=== PATIENT | male | born 1960 | race Caucasian/White ===

== ENCOUNTER 2024-09-23 15:41 | Emergency (ER) | payer MEDICAID, SELFPAY ==
[2024-09-23 15:42] VITALS: BMI 22.4
[2024-09-23 15:51] VITALS: BP 184/87; PULSE 82; RESP 18; TEMP 37.1; O2SAT 97; BMI 24.5
--- NOTE | 2024-09-23 15:55 | XR_ITS ---
Exam: Chest PA, lateral 2 views Technique: Chest upright PA lateral 2 views Date and time of exam: 09/23/2024, 4:07 PM INDICATION: Chest pain COMPARISON: 11/21/2016 Findings: Normal heart size. No mediastinal adenopathy. No acute fracture No pulmonary edema or pneumonia. Impression: No active disease.
--- NOTE | 2024-09-23 15:55 | EKG_ITS ---
[facility] Test Date: 2024-09-23 Pat Name: CLEOPATRA GELLER Department: Room: - Gender: Male Practice Architect: : [id number] Requested By: Isauro Herrmann ([place]) Order Number: [id number] Reading MD: Isauro Herrmann ([employer]TER) Measurements Intervals [place] Rate: 81 P: 45 [place]: 124 QRS: 27 QRSD: 118 T: 56 QT: 372 QTc: 433 Interpretive Statements SINUS RHYTHM MODERATE INTRAVENTRICULAR CONDUCTION DELAY [110+ ms QRS DURATION] No previous ECG available for comparison /[id number].pdf
--- NOTE | 2024-09-23 15:55 | PD.EDRME ---
Rapid Medical Screening Exam RME Arrival date/time: 09/23/24 15:41 64-year-old male presents to the emergency department complaints of chest pressure which began today Chief Complaint: Chest Pain Vital signs: Vital Signs Temperature 98.8 F 09/23/24 15:51 Pulse Rate 82 09/23/24 15:51 Respiratory Rate 18 09/23/24 15:51 Blood Pressure 184/87 H 09/23/24 15:51 Pulse Oximetry (%) 97 09/23/24 15:51 Oxygen Delivery Method Room Air 09/23/24 15:51
[2024-09-23 16:16] LABS: Basophils % (Auto) 0 % (0-2.5); Eosinophils # (Auto) 0.1 Thou/mm3 (0.0-0.5); Eosinophils % (Auto) 1 % (0-10); Hematocrit 44.6 % (41.0-53.0); Hemoglobin 15.8 g/dL (13.5-16.0); Immature Granulocytes % (Auto) 0 % (0-0); Immature Granulocytes Auto 0.02 Thou/mm3 (0.00-0.00); Lymphocytes # (Auto) 3.2 Thou/mm3 (1.0-4.8); Lymphocytes % (Auto) 34 % (10-50); Mean Corpuscular HGB Conc 35.4 g/dl (31.0-37.0); Mean Corpuscular Volume 85 fL (80-100); Monocytes % (Auto) 11 % (0-12); Neutrophils # (Auto) 5.1 Thou/mm3 (1.8-7.7); Neutrophils % (Auto) 54 % (37-80); Nucleated Red Blood Cell % 0 /100 WBC (0); Platelet Count 220 Thou/mm3 (140-440); RDW Standard Deviation 38.3 fL (35.1-43.9); Red Blood Count 5.27 Miln/mm3 (4.50-5.90); White Blood Count 9.4 Thou/mm3 (3.8-10.6)
--- NOTE | 2024-09-23 16:21 | EDNOTE_ITS ---
ED Chest Pain RME/HPI General Chief Complaint: Chest Pain Stated Complaint: Chest pain x 1 day, nausea Time Seen by Provider: 09/23/24 16:20 Arrival date/time: 09/23/24 15:41 RME / HPI RME / HPI narrative: 09/23/24 15:41 64-year-old male presents to the emergency department complaints of chest pressure which began today This section includes all my notes and documentations, including HPI, PE, and ED course. Jonathan Azevedo MD HPI: 64-year-old male here with symptoms of intense fear, pounding and racing heart, sweating, chills, shaking, trouble breathing, chest pain, stomach pain, nausea, numbness and tingling in the hands and feet and face, confusion, hot flashes, and feeling faint. Reports episodes, varying length, for the past several days. No other complaints ROS: All negative except as documented in HPI. Physical Exam: General: Alert and oriented. Appears anxious. Eyes: Conjunctivae and lids clear. EOMI. PERRL. ENT: No nasal congestion. Pharynx normal. Tympanic membrane normal bilaterally. Neck: Supple. No carotid bruit. No JVD. Heart: RRR. Lungs: No respiratory distress. Good air movement. No rhonchi, wheezing, rales. Chest: No tenderness. Abdomen: Soft and nontender. Back: No CVA tenderness. Legs: No clubbing, cyanosis, edema. Skin: Warm and dry. Neuro: Alert and oriented X 3. Cranial Nerves II-XII grossly intact. No peripheral motor deficits. I reviewed all diagnostic test results. My interpretation of the EKG is sinus rhythm with no acute ST?T changes. My interpretation of the chest x-ray is no acute findings. Blood tests unremarkable. At this point, diagnoses include anxiety. Remained stable. Recommended more outpatient cardiac workup. Based on my best medical judgment, made decision no further evaluation or treatment indicated at this time. Patient understands and agrees to the discharge instructions customized and printed, see below. Discharge instructions from Dr. Azevedo: 1. After extensive evaluation, there is no life-threatening condition.? Such as heart attack or pneumothorax (collapsed lung). 2. Your chest pain can be due to high BP and may be due to underlying stress or anxiety or nerves.? This is fairly common. 3. Take metoprolol ER 100 mg every night, you will live longer with lower BP and slower heart rate. Xanax as needed for anxiety.? Whether this helps or not will be valuable information to your private doctors. 4. See a private doctor on 09/24/2024 for recheck and further care. To make sure there is no serious underlying heart condition, ask to help you get more tests for your heart that cannot be done here in the ER.? Such as Holter Monitor (cardiac monitoring at home from a day to even a month), heart stress test (on treadmill or with medication), echocardiogram (imaging of your heart structures), heart catherization (checking for blockages in your heart arteries), and a referral to see a Brazing Machine Feeder. 5. Seek immediate medical care with worsening or with any concerns.?? Jonathan Azevedo MD Related Data Home Medications ?Medication ?Instructions ?Recorded ?Confirmed lisinopril 10 mg tablet 10 mg PO QDAY ##30 06/14/17 simvastatin 20 mg tablet 20 mg PO HS ##30 06/14/17 Previous Rx's ?Medication ?Instructions ?Recorded alprazolam 0.5 mg tablet (Xanax) 0.5 mg PO BID PRN anx iety #10 tabs 09/23/24 metoprolol succinate 100 mg 100 mg PO QDAY #30 ea 08/31 12/21 capsule sprinkle, ext. release 24 hr Allergies Allergy/AdvReac Type Severity Reaction Status Date / Time NKA* Allergy Uncoded 06/14/17 14:39 Course Quality Measures none Orders Category Date Time Status EKG (ED ONLY) *Do not use* NOW Care 09/23/24 15:55 Completed EKG (ED Only) Stat Exams 09/23/24 15:55 Draft XR chest 2V Stat Exams 09/23/24 15:55 Completed BNP [B-Type Natriuretic Peptide] Stat Lab 09/23/24 16:06 Completed CBC Stat Lab 09/23/24 16:06 Completed Comprehensive Metabolic Panel Stat Lab 09/23/24 16:06 Completed Troponin I Stat Lab 09/23/24 16:06 Completed Vital Signs Vital signs: Vital Signs Temperature 98.8 F 09/23/24 15:51 Pulse Rate 82 09/23/24 15:51 Respiratory Rate 18 09/23/24 15:51 Blood Pressure 184/87 H 09/23/24 15:51 Pulse Oximetry (%) 97 09/23/24 15:51 Oxygen Delivery Method Room Air 09/23/24 15:51 Chest Pain Patient data External records reviewed:: [facility] previous records Clinical information provided by:: patient Social determinants that could affect healthcare access:: none Patient has the following chronic illnesses:: Hypertension and hyperlipidemia How is presenting disease/condition affected by chronic disease/condition?: uneffected by Evaluation data The following diagnostics were reviewed and interpreted by me:: lab results, radiology exam(s) and EKG tracing(s) (My interpretation of the EKG is: Sinus rhythm (71 bpm) with nonspecific ST-T changes. Jonathan Azevedo MD) Lab and/or radiology exams considered but not ordered:: None Interpretation Summary: Normal diagnostics Medications / Prescriptions Medications or Prescriptions considered but not ordered:: None Medication administrations:: None Consultations Consultation(s) initiated? (list below): No Diagnosis Chest Pain Differential Diagnosis: pneumothorax, stable angina, unstable angina pectoris, st elevation myocardial infarction, costochondritis and other (Anxiety reaction) Most likely diagnosis given after review of the tests above:: Anxiety reaction Admission Indicated Admission indicated?: not indicated Explain why admission is indicated or not indicated:: There is no indication for admission. Admission Request Was there a request for admission?: No Disposition Plan Disposition Plan: Discharge Discharge Attestation Discharge Attestation: The patient and all family members were given an opportunity to ask questions and understood the discharge instructions. Discharge instructions specifically effects, indications for sooner follow up or return to the emergency department, and the expected course of current diagnosis. Patient condition: Stable Discharge Plan Plan Patient Disposition: HOME (Self Care) Prescriptions/Referrals Prescriptions/Med Rec: New alprazolam [Xanax] 0.5 mg tablet 0.5 mg PO BID PRN (Reason: anxiety) Qty: 10 0RF metoprolol succinate 100 mg capsule,sprinkle,ER 24hr 100 mg PO QDAY Qty: 30 0RF No Action simvastatin 20 MG tablet 20 mg PO HS Qty: 30 lisinopril 10 MG tablet 10 mg PO QDAY Qty: 30 Problem List Clinical Impression: Chest pain Patient/Caregiver Discharge Instructions Discharge Activity: activity as tolerated Education Materials: ED Anxiety Reaction, ED Chest Pain, Uncertain Cause, ED Hypertension, Established Additional Instructions: Discharge instructions from Dr. Azevedo: 1. After extensive evaluation, there is no life-threatening condition.? Such as heart attack or pneumothorax (collapsed lung). 2. Your chest pain can be due to high BP and may be due to underlying stress or anxiety or nerves.? This is fairly common. 3. Take metoprolol ER 100 mg every night, you will live longer with lower BP and slower heart rate. Xanax as needed for anxiety.? Whether this helps or not will be valuable information to your private doctors. 4. See a private doctor on 09/24/2024 for recheck and further care. To make sure there is no serious underlying heart condition, ask to help you get more tests for your heart that cannot be done here in the ER.? Such as Holter Monitor (cardiac monitoring at home from a day to even a month), heart stress test (on treadmill or with medication), echocardiogram (imaging of your heart structures), heart catherization (checking for blockages in your heart arteries), and a referral to see a Brazing Machine Feeder. 5. Seek immediate medical care with worsening or with any concerns.?? Instrucciones de raffi del Dr. Azevedo: 1. Despu?s de mara evaluaci?n exhaustiva, no hay ninguna afecci?n que ponga en peligro la lyssa, lizet un ataque card?aco o un neumot?rax (colapso pulmonar). 2. El dolor en el pecho puede deberse a mara presi?n arterial raffi y puede deberse a estr?s, ansiedad o nervios subyacentes. [place] es bastante com?n. 3. [place] metoprolol ER 100 mg todas las noches, vivir? m?s tiempo con mara presi?n arterial m?s baja y mara frecuencia card?young m?s lenta. Xanax seg?n sea necesario para la ansiedad. Si esto ayuda o no, ser? mara informaci?n valiosa para sherrie m?dicos privados. 4. Visite a un m?dico privado el 24/09/2024 para un nuevo control y m?s atenci?n. Para asegurarse de que no haya mara afecci?n card?young subyacente grave, pida ayuda para realizar m?s pruebas para rodriguez coraz?n que no se pueden realizar aqu? en la estefany de emergencias. [place] por ejemplo, un monitor Holter (monitoreo card?aco en el hogar que dura desde un d?a hasta un mes), mara prueba de esfuerzo card?aco (en mara cinta de correr o con medicaci?n), un ecocardiograma (im?genes de las estructuras del coraz?n), un cateterismo card?aco (para comprobar si hay obstrucciones en las arterias del coraz?n) y mara derivaci?n para jazz a un cardi?logo. 5. Busque atenci?n m?dica inmediata si rodriguez estado empeora o si tiene alguna inquietud. Print Language: Gambian Stand Alone Forms: Alessandra Award Info., Patient Portal Info Letter
[2024-09-23 16:37] LABS: B-Type Natriuretic Peptide < 20 pg/mL (0-100)
[2024-09-23 16:39] LABS: Alanine Aminotransferase 27 U/L (10-49); Albumin, Serum 4.8 gm/dL (3.4-4.8); Albumin/Globulin Ratio 1.5 (1.2-2.2); Alkaline Phosphatase 79 U/L (46-116); Anion Gap 12 (7-16); Aspartate Amino Transferase 27 U/L (0-34); BUN/Creatinine Ratio 11 Ratio (12-20); Bilirubin,Total 0.6 mg/dL (0.3-1.2); Blood Urea Nitrogen 10 mg/dL (9-23); Calcium 9.7 mg/dL (8.3-10.6); Calcium (Corrected) 9.7 mg/dL (8.5-10.1); Carbon Dioxide 24.9 mMol/L (20.0-31.0); Chloride 100 mMol/L (98-107); Creatinine (Component) 0.9 mg/dL (0.6-1.3); Estimated Creatinine Clearance 78.5 mL/min (>60); Globulin 3.3 gm/dL (2.3-3.5); Glucose 105 mg/dL (74-106); Osmolality,Calculated 272 (275-295); Potassium 3.5 mMol/L (3.4-5.1); Sodium 137 mMol/L (136-145); Total Protein 8.1 gm/dL (5.7-8.2); Troponin I < 0.002 ng/mL (0.0-0.045); eGFR > 60 See Note
== END 2024-09-23 17:34 | disposition home or self-care (01) ==
LOC: SERX 17:16
PROVIDERS: Nurse Practitioner Primary Care; Emergency Provider Emergency Medicine
DX: R07.89 Other chest pain (principal); I10 Essential (primary) hypertension; E78.5 Hyperlipidemia, unspecified; Z79.899 Other long term (current) drug therapy
CPT/HCPCS: 36415; 71046; 80053; 83880; 84484; 85025; 93005; 99283